=== PATIENT | female | born 1990 | race Caucasian/White ===

== ENCOUNTER 2020-06-02 11:07 | Day surgery (SDC) | payer OTHER ==
[~2020-06-02] VITALS: Ht 165.1 cm; Wt 99.5 kg
[2020-06-02 12:13] LABS: BASO % 0.3 % (0.0-1.0); EOS # 0.4 10^3/uL (0.0-0.5); EOS % 4.5 % (0.0-3.0); HEMATOCRIT 43.8 % (36.0-47.0); HEMOGLOBIN 14.5 g/dl (12.0-15.5); LYMPH # 2.9 10^3/uL (1.5-5.0); LYMPH % 31.4 % (24.0-44.0); MEAN CORPUSCULAR HEMOGLOBIN 30.8 pg (27.0-33.0); MEAN CORPUSCULAR HGB CONC 33.1 g/dl (32.0-36.5); MONO # 0.6 10^3/uL (0.0-0.8); NEUTROPHILS # 5.2 10^3/uL (1.5-8.5); NEUTROPHILS % 57.5 % (36.0-66.0); PLATELET COUNT, AUTOMATED 301 10^3/uL (150-450); RED BLOOD COUNT 4.71 10^6/uL (4.00-5.40); WHITE BLOOD COUNT 9.1 10^3/uL (4.0-10.0)
[2020-06-02 12:29] LABS: APPEARANCE, URINE CLOUDY (CLEAR); BACTERIA, URINE AUTO NEGATIVE (NEGATIVE); BILIRUBIN, URINE AUTO NEGATIVE (NEGATIVE); BLOOD, URINE BLOOD 2+ (NEGATIVE); COLOR, URINE YELLOW (YELLOW); GLUCOSE, URINE (UA) AUTO NEGATIVE (NEGATIVE); KETONE, URINE AUTO NEGATIVE (NEGATIVE); LEUKOCYTE ESTERASE, URINE AUTO 3+ (NEGATIVE); MUCUS, URINE SMALL (NEGATIVE); NITRITE, URINE AUTO NEGATIVE (NEGATIVE); PROTEIN, URINE AUTO 1+ mg/dL (NEGATIVE); RBC, URINE AUTO 6 /HPF (0-3); SPECIFIC GRAVITY URINE AUTO 1.026 (1.002-1.035); SQUAMOUS EPITHELIAL CELL UR AU 26 /HPF (0-6); UROBILINOGEN, URINE AUTO 0.2 mg/dL (0.0-2.0); WBC, URINE AUTO 69 /HPF (0-3)
[2020-06-02] MEDS ORDERED: ACETAMINOPHEN 500 MG TAB PO ONE (12:45)
[2020-06-02 12:47] LABS: ALBUMIN 3.9 GM/DL (3.2-5.2); ALT/SGPT 56 U/L (12-78); BILIRUBIN,DIRECT < 0.1 MG/DL (0.0-0.2); BILIRUBIN,TOTAL 0.3 MG/DL (0.2-1.0); BLOOD UREA NITROGEN 10 MG/DL (7-18); CALCIUM LEVEL 9.2 MG/DL (8.5-10.1); CARBON DIOXIDE LEVEL 24 MEQ/L (21-32); CHLORIDE LEVEL 104 MEQ/L (98-107); CREATININE FOR GFR 0.75 MG/DL (0.55-1.30); GLOMERULAR FILTRATION RATE > 60.0 (>60); GLUCOSE, FASTING 103 MG/DL (70-100); HCG, SERUM QUANTITATIVE 6335 MIU/ML; LIPASE 155 U/L (73-393); POTASSIUM SERUM 4.1 MEQ/L (3.5-5.1); SODIUM LEVEL 135 MEQ/L (136-145); TOTAL PROTEIN 8.2 GM/DL (6.4-8.2)
[2020-06-02] MEDS ORDERED: ONDANSETRON 4MG/2ML VIAL IV ONE (13:30)
[2020-06-02] MEDS ORDERED: NS 1,000 ML IV ONE (13:30)
[2020-06-02] MEDS ORDERED: MORPHINE 4 MG/ML 1ML VIAL/SYRINGE (J2270) IV ONE (13:30)
--- NOTE | 2020-06-02 14:06 | REPVR ---
PROCEDURE INFORMATION: Exam: US Retroperitoneal Limited, Kidneys Exam date and time: 06/02/2020 1:25 PM Age: 30 years old Clinical indication: Abdominal pain; Flank; Right lower quadrant (rlq); ; Additional info: R flank pain TECHNIQUE: Imaging protocol: Real-time ultrasound of the retroperitoneum with image documentation. Examination was focused on the kidneys. COMPARISON: No relevant prior studies available. FINDINGS: Right kidney: The right kidney is normal in size, contour, cortical thickness, and echogenicity. No calculus or hydronephrosis is identified. There is mild fullness of the renal collecting system. No renal lesion is identified. No perinephric fluid collection is seen. The right kidney measures 11.9 cm in length. Left kidney: The left kidney is normal in size, contour, cortical thickness and echogenicity. No calculus or hydronephrosis is identified. No renal lesion is identified. No perinephric fluid collection is seen. The left kidney measures 11.6 cm in length. Bladder: The bladder is decompressed but otherwise normal. IMPRESSION: No renal calculus, hydronephrosis or masses are seen. Electronically signed by: Mirza Wagner On 06/02/2020 14:06:14 PM
--- NOTE | 2020-06-02 14:25 | REPVR ---
PROCEDURE INFORMATION: Exam: US First Trimester, Transabdominal and US , Transvaginal Exam date and time: 06/02/2020 1:25 PM Age: 30 years old Clinical indication: Other: RT adnexal pain; Gestational age or lmp: 6; ; Additional info: 1st trimester , right sided pelvic pain TECHNIQUE: Imaging protocol: Real-time transabdominal obstetrical ultrasound of the maternal pelvis and a first trimester , less than 14 weeks 0 days, with image documentation. Transvaginal imaging was used for better evaluation of the fetus and adnexa. COMPARISON: RENAL US 06/02/2020 1:00 PM FINDINGS: Gestation: No intrauterine gestation sac is seen. MATERNAL: Uterus: The uterus is anteverted, normal in size and echotexture. The uterus measures 8.4 x 4.5 x 5.6 cm in dimensions. No discrete fibroid or focal mass is seen. The endometrium measures 11 millimeters in thickness. Cervix: Unremarkable. Right adnexa: The right ovary is normal in size and echotexture. 2.9 x 3.1 x 2.8 cms. Normal arterial flow is seen in the right ovary without evidence for torsion. 1.9 cm anechoic corpus luteum cyst is seen in the right ovary. There is a complex avascular rounded echogenic mass with central cystic component adjacent to the right ovary in the right adnexal region measuring 1.6 x 1.6 x 2.3 cm in dimensions. Ectopic cannot be excluded and clinical correlation and correlation with beta HCG is recommended. However, it is unusual for ectopic to be avascular on color Doppler imaging. Left adnexa: The left ovary is normal in size and echotexture. 1.6 x 2.2 x 2.5 cms.Normal arterial flow is seen in the left ovary without evidence for torsion. Intraperitoneal space: Trace free fluid is seen in the pelvis. IMPRESSION: 1. No intrauterine gestation sac is seen. 2. The right ovary is normal in size and echotexture. 2.9 x 3.1 x 2.8 cms. Normal arterial flow is seen in the right ovary without evidence for torsion. 1.9 cm anechoic corpus luteum cyst is seen in the right ovary. There is a complex avascular rounded echogenic mass with central cystic component adjacent to the right ovary in the right adnexal region measuring 1.6 x 1.6 x 2.3 cm in dimensions. Ectopic cannot be excluded and clinical correlation and correlation with beta HCG is recommended. However, it is unusual for ectopic to be avascular on color Doppler imaging. 3. Trace free fluid is seen in the pelvis. Electronically signed by: Mirza Wagner On 06/02/2020 14:24:56 PM
[2020-06-02] MEDS ORDERED: RHOGAM 300 MCG (1500 IU) INJ (J2790) IM ONE (15:15)
[2020-06-02] MEDS ORDERED: BUPIVACAINE HCL 0.25% 30ML VIAL As Ordered ONE (16:37)
[2020-06-02] MEDS ORDERED: dexameTHASONE 4 MG/ML 1ML VIAL (J1100 PER 1MG) As Ordered ONE (17:07)
[2020-06-02] MEDS ORDERED: SUGAMMADEX SODIUM 500 MG/5 ML VIAL (BRIDION) As Ordered ONE (17:07)
[2020-06-02] MEDS ORDERED: MIDAZOLAM INJ 2MG/2ML VIAL (J2250 PER 1MG) As Ordered ONE (17:07)
[2020-06-02] MEDS ORDERED: KETOROLAC 60MG 2ML VIAL As Ordered ONE (17:07)
[2020-06-02] MEDS ORDERED: fentaNYL 250 MCG/5 ML INJECTION (J3010) As Ordered ONE (17:07)
[2020-06-02] MEDS ORDERED: propofoL 200 MG/20 ML VIAL As Ordered ONE (17:07)
[2020-06-02] MEDS ORDERED: ROCURONIUM BROMIDE 50 MG/5 ML VIAL As Ordered ONE (17:07)
[2020-06-02] MEDS ORDERED: METOCLOPRAMIDE INJ 10MG/2ML VIAL (J2765 PER 1) As Ordered ONE (17:07)
[2020-06-02] MEDS ORDERED: LIDOCAINE 2% 100MG/5ML SDV (FOR ANES.) As Ordered ONE (17:07)
[2020-06-02] MEDS ORDERED: ONDANSETRON 4MG/2ML VIAL As Ordered ONE (17:07)
[2020-06-02] MEDS ORDERED: OXYC1TAB23 PO (18:03)
[2020-06-02] MEDS ORDERED: IBUP80TA PO (18:05)
[2020-06-02] MEDS ORDERED: oxyCODONE 5MG TAB As Ordered ONE (18:06)
[2020-06-02] MEDS ORDERED: fentaNYL 100 MCG/2 ML INJECTION (J3010) As Ordered ONE (18:06)
[2020-06-02] MEDS ORDERED: COLA100C5 PO (18:06)
[2020-06-02] MEDS ORDERED: PERCOCET 5MG/325MG TAB PO PRN ×2 (18:15)
[2020-06-02] MEDS ORDERED: oxyCODONE 5MG TAB PO PRN (18:15)
[2020-06-02] MEDS ORDERED: ONDANSETRON 4MG/2ML VIAL IV PRN ×2 (18:15)
[2020-06-02] MEDS ORDERED: DOCUSATE SODIUM 100 MG CAP PO PRN (18:15)
[2020-06-02] MEDS ORDERED: METOCLOPRAMIDE INJ 10MG/2ML VIAL (J2765 PER 1) IV PRN (18:15)
[2020-06-02] MEDS ORDERED: fentaNYL 100 MCG/2 ML INJECTION (J3010) IV PRN (18:15)
[2020-06-02] MEDS ORDERED: PROMETHAZINE INJ 25 MG/ML VIAL (J2550) IV PRN (18:15)
[2020-06-02] MEDS ORDERED: MEPERIDINE INJ 25 MG/ML VIAL (J2175) IV PRN (18:15)
[2020-06-02] MEDS ORDERED: LR 1,000 ML IV SCH ×2 (18:15)
[2020-06-02] MEDS ORDERED: KETOROLAC 30 MG/ML 1ML VIAL IV PRN (18:15)
--- NOTE | 2020-06-02 18:16 | ROOPDOC ---
[facility] Report Of Operation Report of Operation DATE OF PROCEDURE: 06/02/2020 PREPROCEDURE DIAGNOSES: Right-sided ectopic , unruptured. POSTPROCEDURE DIAGNOSES: Same PROCEDURE: Laparoscopic right salpingectomy/excision of right ectopic . SURGEON: Rafael Keating DO FACOG ASSAULT AMPHIBIOUS VEHICLE OFFICER: None ANESTHESIA: General endotracheal. ESTIMATED BLOOD LOSS: Approximately 5 mL. IV FLUIDS: 1000 mL LR BLOOD PRODUCTS: None URINE OUTPUT: 100 mL via Hennessy catheter COMPLICATIONS: None. FINDINGS: Right-sided ectopic , unruptured ampullary/fimbrial location, school admissions representative images taken. PREOPERATIVE ANTIBIOTICS: none indicated. SPECIMEN: right fallopian tube with ectopic DESCRIPTION OF PROCEDURE: The patient was counseled and consented on the risks, benefits, indications and alternatives procedure. Informed consent was obtained. She was emergently transferred from the ER to the operating room. The patient had 2 IVs. She was placed on the operating table in the dorsal supine position. Gen. anesthesia was administered and the airway was secured without any difficulty. She was placed in the low lithotomy position. She was prepared and draped in the normal sterile fashion. A timeout was performed per protocol. A Hennessy catheter was placed under sterile conditions. A sterile speculum was placed with good visualization of the cervix. Single-toothed tenaculum was placed onto the anterior lip of the cervix and downward traction was applied. The cervix was then sequentially dilated with Loyd dilators. The ZUMI uterine manipulator was then placed without any difficulty. The sterile speculum was removed. The single-tooth tenaculum was removed. A sterile glove switch was performed. Attention was turned to the abdomen. A 1 cm umbilical incision was made with the 11 blade. A Veress needle was placed into the intraperitoneal cavity without any difficulty. Intraperitoneal placement was confirmed with ease of flow of normal saline, a positive drop test and negative return on aspiration. Opening pressure was less than 10 mmHg. The abdomen was insufflated with 2 L of CO2 gas. The size 11 mm laparoscopic trocar/cannula was inserted under direct laparoscopic visualization into the intraperitoneal cavity. The ectopic was noted to be located within the right fallopian tube, and there was no active bleeding. The fallopian tube was followed out to the fimbriated end, and elevated. The underlying mesosalpinx was sequentially clamped, coagulated and transected using the 5 mm LigaSure device, until the level of the cornu was reached. At the level of the cornu. The fallopian tube was clamped, coagulated and transected, thus amputating the right fallopian tube that contained the ectopic . Excellent hemostasis of the right adnexa was noted. The Endo Catch was placed through the 11 mm cannula. The ectopic was placed into the Endo Catch bag and removed from the abdomen through the umbilical incision without any difficulty. The very small amount of hemoperitoneum was evacuated using the suction locomotive lubricating systems clerk. The pelvis was reinspected and noted to be hemostatic. Fur Plucker images were taken. The umbilical cannula was removed. Using the Arsalan-Naz technique, the fascia at the umbilicus was closed with 0 Vicryl. The gas was released from the abdomen through the other cannulas. Those cannulas were then removed. Each skin incision was closed with 4-0 Monocryl in subcuticular fashion. The ZUMI uterine manipulator was removed. The Hennessy catheter was removed. Sponge, needle and instrument counts were correct per protocol. The patient tolerated the entire procedure very well. She was transferred to the PACU in good stable condition. DO WENDY Reagan JONATHAN R. DO Jun 02, 2020 18:16
[2020-06-02 19:30] VITALS: BP 128/71
[2020-06-02 20:00] VITALS: BP 115/73
[2020-06-02 20:30] VITALS: BP 114/62
[2020-06-02 21:30] VITALS: BP 102/56
[2020-06-02 22:30] VITALS: BP 113/61
== END 2020-06-02 23:45 | disposition home or self-care (01) ==
LOC: M ED 11:07 → M SDC 15:03 → ENRESERV 18:12 → M OBS 19:30 → M SDC 23:45
PROVIDERS: ATTEND Obstetrics & Gynecology
DX: O00.90 Unspecified ectopic pregnancy without intrauterine pregnancy (principal); E66.9 Obesity, unspecified
CPT/HCPCS: 36415; 59151; 76775; 76801; 76817; 80048; 80076; 81001; 83690; 84702; 85025; 86850; 86900; 86901; 87086; 88305; 93976; 96361; 96372; 96374; 96375; 99284; J1100; J1885; J2250; J2270; J2405; J2765; J2790; J3010; U0002

== ENCOUNTER → 2020-09-27 | Outpatient (CLI) | payer OTHER ==
[~2020-09-27] MED LIST: COLA100C5 PO; IBUP80TA PO; OXYC1TAB23 PO
[2020-09-27 12:18] LABS: BASO % 0.5 % (0.0-1.0); EOS # 0.1 10^3/uL (0.0-0.5); EOS % 2.2 % (0.0-3.0); HEMATOCRIT 41.4 % (36.0-47.0); HEMOGLOBIN 13.8 g/dl (12.0-15.5); LYMPH # 2.3 10^3/uL (1.5-5.0); LYMPH % 35.4 % (24.0-44.0); MEAN CORPUSCULAR HEMOGLOBIN 31.4 pg (27.0-33.0); MEAN CORPUSCULAR HGB CONC 33.3 g/dl (32.0-36.5); MEAN CORPUSCULAR VOLUME 94.3 fl (80.0-96.0); MONO # 0.4 10^3/uL (0.0-0.8); MONO % 5.9 % (0.0-5.0); NEUTROPHILS # 3.6 10^3/uL (1.5-8.5); NEUTROPHILS % 55.7 % (36.0-66.0); PLATELET COUNT, AUTOMATED 313 10^3/uL (150-450); RED BLOOD COUNT 4.39 10^6/uL (4.00-5.40); WHITE BLOOD COUNT 6.5 10^3/uL (4.0-10.0)
[2020-09-27 12:46] LABS: ERYTHROCYTE SEDIMENTATION RATE 13 mm/hr (0-20)
[2020-09-27 12:49] LABS: ALBUMIN 3.9 GM/DL (3.2-5.2); ALT/SGPT 44 U/L (12-78); BILIRUBIN,TOTAL 0.3 MG/DL (0.2-1.0); BLOOD UREA NITROGEN 12 MG/DL (7-18); CALCIUM LEVEL 9.2 MG/DL (8.5-10.1); CARBON DIOXIDE LEVEL 24 MEQ/L (21-32); CHLORIDE LEVEL 108 MEQ/L (98-107); GLOMERULAR FILTRATION RATE > 60.0 (>60); GLUCOSE, FASTING 96 MG/DL (70-100); RHEUMATOID FACTOR QUANT < 10.0 IU/ML (<15.0); SODIUM LEVEL 141 MEQ/L (136-145); TOTAL PROTEIN 7.5 GM/DL (6.4-8.2)
[2020-09-27 12:50] LABS: TOTAL 25(OH) VITAMIN D 11.6 NG/ML (30.0-100.0)
[2020-09-28 15:07] LABS: ANTINUCLEAR ANTIBODIES DIRECT Negative (Negative)
== END ==
LOC: M LAB 11:40
PROVIDERS: ATTEND Psychiatry & Neurology Neurology
DX: R51.9 Headache, unspecified (principal); M25.551 Pain in right hip

== ENCOUNTER → 2020-09-27 | Outpatient (CLI) | payer OTHER ==
--- NOTE | 2020-09-27 19:03 | REP ---
INDICATION: PAIN IN RIGHT HIP/ LABS 1ST. COMPARISON: None. TECHNIQUE: AP and frogleg views of the right hip were obtained. FINDINGS: Overall mineralization pattern is normal. Femoral head is smooth and rounded hip joint space is preserved. Proximal femur and right hemipelvis are intact. No erosive changes seen. Periarticular soft tissues are unremarkable. IMPRESSION: Negative right hip radiographs. <Electronically signed by José Miguel Montague > 09/27/20 [id number]
== END ==
LOC: M RAD 11:43
PROVIDERS: ATTEND Physician Assistant
DX: M25.551 Pain in right hip (principal)

== ENCOUNTER → 2021-09-25 | Outpatient (CLI) | payer OTHER ==
[~2021-09-25] MED LIST changes: +ISOVUE-370 76% 100ML VIAL As Ordered ONE
== END ==
LOC: M RADPRO 11:59
PROVIDERS: ATTEND Obstetrics & Gynecology
DX: N97.9 Female infertility, unspecified (principal)